=== PATIENT | male | born 1935 | race Caucasian/White ===

== ENCOUNTER 2017-04-14 19:22 | Inpatient (IN) | payer OTHER ==
--- NOTE | ~2017-04-14 | HP ---
Unit #: [id number] #: [id number] Patient: ALFA HELMS [id number] [address] [address] [id number] MR#: [id number] NAME: ALFA HELMS. ROOM: 479 Age: 81 Sex: M Admission Date: 04/15/2017 : 1935 Attending Physician: Bailey Randall M.D. Primary Care Physician: Danyelle Rivera M.D. HISTORY AND PHYSICAL CHIEF COMPLAINT Weakness. HISTORY OF PRESENT ILLNESS Mr. Helms is a very nice 81-year-old male, with a history of diabetes, coronary artery disease, and prior urinary retention, who presented to the ER for above. The patient generally walks with a walker. He resides by himself and gets around well though he does admit to having a few falls for which he did not sustain injury recently. However, yesterday, he abruptly became increasingly weak meaning he was unable to get up from a seated position which is abnormal. He denies any fever at home. He denies any nausea or vomiting, chest pain, shortness of breath, dysuria. He presented to this emergency department last night secondary to his weakness and was found to have a temperature of 100.8 rectally. Urinalysis was concerning for urinary tract infection. He was given a dose of Rocephin and referred for admission. This morning he states that he feels well, again, he does admit that he has some overflow incontinence intermittently at home and did have an episode while in the room with me during the examination. A review of records indicates that he had urinary tract infection in 2013 with associated urinary retention. PAST MEDICAL HISTORY 1. Coronary artery disease, status post heart cath x2 without intervention. This is medically managed. 2. Diabetes mellitus, type 2, insulin-requiring with associated chronic kidney disease and peripheral neuropathy. 3. Chronic kidney disease, stage III, has basic creatinine of 1.3. 4. Paroxysmal atrial fibrillation maintained on Sotalol. 5. Benign prostatic hypertrophy, status post TURP x2. 6. Lumbar spinal stenosis. 7. Chronic lower extremity edema. 8. Hypertension. 9. Prior history of melanoma. 10. Hypertension. 11. Hyperlipidemia. 12. Chronic decreased mobility. PAST SURGICAL HISTORY Includes, transurethral resection of the prostate x2. Unit #: [id number] #: [id number] Patient: ALFA HELMS ALLERGIES No known drug allergies. HOME MEDICATIONS Include: 1. Flomax 0.4 mg daily 2. Sotalol 80 mg b.i.d. 3. Foltx tablet one tablet daily 4. Fish oil 1000 mg daily 5. Cinnamon one tablet daily 6. Lasix 20 mg b.i.d. 7. Norvasc 5 mg daily 8. Gabapentin 300 mg b.i.d. 9. Atorvastatin 10 mg daily 10. Lisinopril 5 mg daily 11. Aspirin 81 mg daily 12. Daily multivitamin 13. Humalog 50/50 mix 18 units subcu t.i.d. with meals FAMILY HISTORY Significant for prostate problems in patient's father, patient's father passed from old age. SOCIAL HISTORY The patient lives by himself, and again ambulates with a walker, but lives next door to his daughter who checks on him daily. He quit smoking in 1983 but did smoke one pack per day for thirty years. No alcohol use. No illicit drug use. REVIEW OF SYSTEMS Denies any fever, any lightheadedness, any vision change, any sore throat, any shortness of breath, chest pain, palpitations, constipation, diarrhea, melena, hematochezia. Denies any urinary retention, states that he has nocturia once per night but occasionally does have incontinence which appears to be overflow upon history, has had some falls without any sustainable injury, no new rashes, no new tingling, numbness, or weakness of extremities, otherwise ten point review of systems was reviewed and is negative. PHYSICAL EXAMINATION VITAL SIGNS: Current temperature is 100.0, maximum temperature was 100.8, blood pressure 120/61, pulse rate 86, respiratory rate 16, oxygen saturation 95% on room air. GENERAL: The patient is awake, alert. He is oriented x3 and appears younger than stated age. HEENT: Pupils equally round, and reactive to light bilaterally, anicteric sclerae, no conjunctival pallor. Oropharynx with moist mucous membranes. No erythema or exudate. NECK: Supple. No lymphadenopathy. No thyromegaly. No jugular venous distention. HEART: Regular rate and rhythm currently without murmur, rub, or gallop. LUNGS: Clear to auscultation bilaterally without wheezes, rhonchi, or crackles. ABDOMEN: Soft, it is nontender, perhaps mildly distended and obese, no appreciable hepatosplenomegaly. GENITOURINARY: No abnormalities noted on external exam. EXTREMITIES: No cyanosis, clubbing, and 1+ nonpitting edema of lower extremities. Pedal pulses are 4. Unit #: [id number] #: [id number] Patient: ALFA HELMS SKIN: Warm, moist without rash. NEUROLOGIC: Mildly decreased sensation in the feet bilaterally, deep tendon reflexes are 2/4 in the upper and lower extremities, bilaterally. Strength appears 4/5 in lower extremities and upper extremities bilaterally. Gait was not assessed. Pupils are equally round and reactive. PSYCHIATRIC: Appropriate affect, no suicidal or homicidal ideation. MUSCULOSKELETAL: Some hypertrophy of the knees noted bilaterally but no joint erythema. DIAGNOSTIC STUDIES LABORATORY: Lab work done in the emergency department, last evening, reveals a white blood cell count of 17.6, hemoglobin 13.6, platelet count of 137,000. This morning, white blood cell count is up to 19.1, hemoglobin 12.7. platelet count of 128,000 with 78% neutrophils. This morning BMP reveals a sodium of 144, and potassium 3.6, chloride 109, bicarb 21, BUN 17, creatinine 1.3, glucose of 127. Urinalysis reveals 2+ leukocyte esterase, 2+ protein, 3+ blood, 10-25 RBCs, and 200-300 WBCs with 4+ bacteria, no squamous cells, lactic acid was initially normal at 0.9 upon presentation and digoxin level was negative. IMAGING: Chest x-ray, done in the emergency department, is normal. CARDIOVASCULAR: EKG done in the emergency department reveals normal sinus rhythm. There is Q-wave present in V1. No other acute ST or T-wave abnormalities. ASSESSMENT 1. Sepsis secondary to urinary tract infection. 2. Probable urinary retention with overflow incontinence perhaps source of urinary tract infection. 3. Weakness secondary to #1. 4. Chronic kidney disease, stage III at baseline. 5. Chronic thrombocytopenia per history reviewed. 6. Diabetes mellitus, type 2, insulin-requiring with associated chronic kidney disease and peripheral neuropathy. 7. Paroxysmal atrial fibrillation now maintained in normal sinus rhythm, and not on anticoagulation. 8. Hypertension. 9. Hyperlipidemia. 10. History of benign prostatic hypertrophy. 11. Chronic decreased mobility. PLAN 1. Will admit the patient to med/surg. 2. Rocephin was started in the emergency department, I think this is appropriate, will await urine culture. 3. I am going to check a postvoid residual and place [place] if postvoid residual greater than 200, if this is the case I will ask urology to reevaluate. 4. Have PT and OT evaluate in regards to weakness, I suspect the patient will require rehab. 5. Will continue to monitor renal function. 6. Will monitor platelet count tomorrow. 7. Will continue insulin in regards to patient's diabetes, obtain Accu-Cheks a.c. and h.s. with associated sliding scale. Unit #: [id number] #: [id number] Patient: ALFA HELMS 8. Continue home medications for chronic conditions. 9. Lovenox for DVT prophylaxis. Dictated by Ramos Lawrence/wild TD: 04/15/2017 10:06 JOB #: [id number] HISTORY AND PHYSICAL Page 1 of 1 X Bailey Randall MD HISTORY AND PHYSICAL
--- NOTE | ~2017-04-14 | CR72 ---
[facility] A Service of [facility] RADIOLOGY TEXT RESULTS PATIENT: ALFA JIMENEZ LOCATION: [place] [address] : [birth year] UNIT #: [id number] AGE: [address]: Bailey Randall MD SEX: M ORDER DR: [id number] [facility] [address] [place], [place] [address] [id number] MR#: [id number] Acc #: [id number] NAME: ALFA JIMENEZ : 1935 SEX: M STUDY DATE/TIME: 04/14/2017 21:01 UNIT: [facility] ROOM: STUDY DESCRIPTION: CR Chest Single View Portable Attending Physician: Elizabeth Chacko M.D. Ordering Physician: Elizabeth Chacko M.D. Primary Care Physician: Danyelle Rivera M.D. MEDICAL IMAGING REPORT This report is preliminary unless electronic signature is present EXAM Portable chest HISTORY An 81-year-old male with altered mental status, congestion today. History of myeloma. COMPARISON 12/25/2013 FINDINGS A single AP portable view of the chest shows both lungs to be clear. The heart is normal in size. The mediastinal contour is normal. No significant bone abnormalities are seen. IMPRESSION Normal portable chest. Dictated by... Sp Torre M.D. THIS IS AN ELECTRONICALLY VERIFIED REPORT Sp Torre M.D. at 04/17/2017 6:07 AM Khurram TD: 04/15/2017 00:47 JOB #: [id number] MEDICAL IMAGING REPORT Page 1 of 1 COPY
--- NOTE | ~2017-04-14 | EKG ---
PATIENT: ALFA JIMENEZ UNIT #: [id number] Ventricular Rate: 86 BPM Atrial Rate: 86 BPM P-R Interval: 166 ms QRS Duration: 84 ms Q-T Interval: 368 ms QTC Calculation(Bezet): 440 ms P [place]: 48 degrees Calculated R [place]: 15 degrees Calculated T [place]: 45 degrees Diagnosis Line: Sinus rhythm with occasional Premature ventricular Diagnosis Line: complexes and Premature atrial complexes Diagnosis Line: Otherwise normal ECG Diagnosis Line: When compared with ECG of 28-DEC-2013 16:34, Diagnosis Line: Premature ventricular complexes are now Present Diagnosis Line: Premature atrial complexes are now Present Diagnosis Line: Confirmed by ANTOLIN SULLIVAN MD ([id number]) on Diagnosis Line: 04/15/2017 4:30:04 PM INTERPRETING MD: NATE CHAIDEZ
--- NOTE | ~2017-04-14 | DS ---
Unit #: [id number] #: [id number] Patient: ALFA JIMENEZ [id number] [address] [place], [place] [address] [id number] Blas MR#: [id number] NAME: ALFA JIMENEZ. ROOM: 479 Age: 81 Sex: M Admission Date: 04/15/2017 : 1935 Discharge Date: 04/18/2017 Attending Physician: Bailey Randall M.D. Primary Care Physician: Danyelle Rivera M.D. DISCHARGE SUMMARY PRINCIPAL DIAGNOSES 1. Sepsis secondary to Escherichia coli urinary tract infection. 2. Physical deconditioning, acute on chronic, secondary to #1. 3. Chronic kidney disease stage 3, discharge creatinine of 1.4. 4. Chronic thrombocytopenia. 5. Diabetes mellitus type 2 with associated peripheral neuropathy and chronic kidney disease, insulin requiring and controlled. 6. Paroxysmal atrial fibrillation, currently maintained in normal sinus rhythm. 7. Hypertension. 8. Benign prostatic hypertrophy, status post transurethral resection of the prostate x2. CONSULTANTS None. PROCEDURE Chest x-ray on April 14, 2017, which was normal. CLINICAL HISTORY AND HOSPITAL COURSE Mr. Jimenez is a very nice 81-year-old male who presented to the emergency department with the acute onset of weakness. In the emergency department, he was found to have a urinary tract infection and was subsequently admitted. In regards to patient's UTI, he was started on empiric Rocephin. Urine culture has grown E. coli, and he has been changed to oral antibiotics for which he will complete a total of seven days of antibiotic therapy. I will note that I suspect the patient has some recurrent urinary retention leading to UTI, though I could not detect this on bladder scan during hospitalization. He can follow up with Urology if he so desires as an outpatient. However, I believe this is currently being monitored by Dr. Rivera. Patient's other chronic conditions all remained stable without adjustments in his medications. He will be discharged to rehab today given he was significantly weak with PT/OT. DISCHARGE CONDITION Stable. DISCHARGE STATUS Discharge to rehab. Unit #: [id number] #: [id number] Patient: ALFA JIMENEZ DISCHARGE MEDICATIONS 1. Flomax 0.4 mg daily. 2. Neurontin 300 mg b.i.d. 3. Norvasc 5 mg daily. 4. Sotalol 80 mg b.i.d. 5. Keflex 500 mg p.o. b.i.d., to stop after doses on April 21, 2017. 6. Lasix 20 mg b.i.d. 7. Lipitor 10 mg at bedtime. 8. Lisinopril 5 mg daily. 9. Humalog 50/50 mix 18 units subcutaneous t.i.d. with meals. 10. Fish oil 1000 mg daily. 11. Daily multivitamin. 12. Aspirin 81 mg daily. 13. Cinnamon tablet 1 daily. 14. Foltx tablet 1 daily. DISCHARGE INSTRUCTIONS 1. Patient was instructed to follow a constant carbohydrate diet. 2. I think patient only requires Accu-Cheks intermittently at rehab given sugars here have been stable in the 120s-150s range. 3. He can increase his activity as tolerated under the care of physical and occupational therapy. FOLLOWUP Patient will follow up with Dr. Rivera upon discharge from rehab. Dictated by... Bailey Randall M.D. Frances TD: 04/18/2017 14:30 JOB #: [id number] DISCHARGE SUMMARY Page 1 of 1 X Bailey Randall MD X DISCHARGE SUMMARY
[~2017-04-14 19:22] MED LIST: AMARYL PO; AMLODIPINE BESY10 MG PO; AMLODIPINE BESYL5 MG PO; ASPIRIN81 MG PO; B-12250 MCG PO; BAYER CHEWABLE81 MG; CINNAMON PO; COZAAR100 MG; FISH OIL300 MG PO; FLOMAX0.4 M1 PO; GABAPENTIN300 M2; GABAPENTIN300 MG PO; HYDROCHLOROTHIA25 MG PO; JENTADUETO 2.51 EACH PO; LANOXIN PO; LANOXIN125 MCG PO; LASIX PO; LISINOPRIL10 MG PO; METFORMIN HCL1000 M1; NIACIN; NIACIN PO; NIACIN50 MG PO; SOTALOL AF80 M1; SOTALOL AF80 M1 PO; SOTALOL AF80 MG; SOTALOL AF80 MG PO; TAMSULOSIN HCL0.4 MG
[2017-04-14 20:32] LABS: BASOPHIL# 0.1 X10e3 (0-0.3); BASOPHIL% 0.3 % (0-2.5); EOSINOPHIL% 0.1 % (0.0-7.0); HEMATOCRIT 41.2 % (38.0-50.0); HEMOGLOBIN 13.6 gm/dL (13.0-16.0); LYMPHOCYTE# 2.1 X10e3 (1.0-3.5); LYMPHOCYTE% 12.2 % (17.0-45.0); MEAN CORPUSCULAR HEMOGLOBIN 31.6 PG (28-34); MEAN PLATELET VOLUME 9.8 FL (6.5-11.5); MONOCYTE# 2.2 X10e3 (0-1.0); MONOCYTE% 12.5 % (3.0-12.0); NEUTROPHIL# 13.2 X10e3 (1.5-7.1); NEUTROPHIL% 74.9 % (40-75); PLATELET COUNT 137 X10e3 (140-420); RED BLOOD COUNT 4.29 X10e (3.90-5.60); RED CELL DISTRIBUTION WIDTH 14.3 % (11.0-15.5); WHITE BLOOD COUNT 17.6 X10e3 (4.0-10.5)
[2017-04-14 20:35] LABS: DIFF IND YES
[2017-04-14 20:45] LABS: ALBUMIN SERUM 3.5 g/dL (3.5-5.0); BILIRUBIN, DIRECT 0.1 mg/dL (0.0-0.2); BILIRUBIN,INDIRECT 0.7 mg/dL (0.0-0.9); BILIRUBIN,TOTAL 0.8 mg/dL (0.2-2.0); BUN/CREATININE RATIO 15.71; CALCIUM SERUM 8.7 mg/dL (8.4-10.2); CREATININE SERUM 1.4 mg/dL (0.6-1.4); GLOM FILT RATE Estimated 46.2 mL/min (>60); POTASSIUM 3.5 mmol/L (3.5-5.1); PROTEIN TOTAL SERUM 7.5 g/dL (6.0-8.3)
[2017-04-14 21:02] LABS: PLATELET ESTIMATE NORMAL (NORMAL); RBC NORMAL YES
[2017-04-14 21:51] LABS: URINE SOURCE CLEAN CATCH
[2017-04-14 21:54] LABS: URINE APPEARANCE CLOUDY; URINE BILIRUBIN NEG (NEG); URINE BLOOD 3+ (NEG); URINE COLOR YELLOW; URINE GLUCOSE NEG (NEG); URINE KETONE 1+ (NEG); URINE LEUKOCYTE ESTERASE 2+ (NEG); URINE NITRATE NEG (NEG); URINE PH 6.5 (5-8); URINE PROTEIN 2+ (NEG); URINE SPECIFIC GRAVITY 1.021 (1.003-1.035)
[2017-04-14 21:57] LABS: CULTURE INDICATED? YES; URINE BACTERIA AUWI 4+ (NEGATIVE); URINE SQUAMOUS EPITHELIAL CELL NONE SEEN /[HPF]; UWBCS1 AUWI 200-300 (0-5)
[2017-04-15] MEDS ORDERED: LASIX20 MG PO (05:17)
[2017-04-15] MEDS ORDERED: ATORVASTATIN CA10 MG PO (05:18)
[2017-04-15] MEDS ORDERED: AMLODIPINE BESYL5 MG PO (05:18)
[2017-04-15] MEDS ORDERED: GABAPENTIN300 M2 PO (05:18)
[2017-04-15] MEDS ORDERED: FLOMAX0.4 M1 PO (05:19)
[2017-04-15] MEDS ORDERED: SOTALOL AF80 M1 PO (05:19)
[2017-04-15] MEDS ORDERED: LISINOPRIL5 MG PO (05:19)
[2017-04-15] MEDS ORDERED: FISH OIL DR 1,1 EACH PO (05:20)
[2017-04-15] MEDS ORDERED: CINNAMON ALPHA1 EACH PO (05:20)
[2017-04-15] MEDS ORDERED: FOLTX TABLET1 EACH PO (05:20)
[2017-04-15] MEDS ORDERED: MULTIVITAMINS1 EAC3 (05:21)
[2017-04-15] MEDS ORDERED: BAYER CHEWABLE81 MG PO (05:21)
[2017-04-15] MEDS ORDERED: HUMALOG MI100 UNIT/3 SUBQ (05:22)
[2017-04-15 07:31] LABS: BASOPHIL# 0.1 X10e3 (0-0.3); BASOPHIL% 0.3 % (0-2.5); HEMATOCRIT 38.9 % (38.0-50.0); HEMOGLOBIN 12.7 gm/dL (13.0-16.0); LYMPHOCYTE# 1.9 X10e3 (1.0-3.5); LYMPHOCYTE% 10.2 % (17.0-45.0); MEAN CELL VOLUME 96.9 FL (83-96); MEAN CORPUSCULAR HEMOGLOBIN 31.7 PG (28-34); MEAN CORPUSCULAR HGB CONC 32.7 g/dL (30-36); MEAN PLATELET VOLUME 10.3 FL (6.5-11.5); MONOCYTE# 2.2 X10e3 (0-1.0); MONOCYTE% 11.7 % (3.0-12.0); NEUTROPHIL# 14.8 X10e3 (1.5-7.1); NEUTROPHIL% 77.8 % (40-75); PLATELET COUNT 128 X10e3 (140-420); RED BLOOD COUNT 4.02 X10e (3.90-5.60); RED CELL DISTRIBUTION WIDTH 14.2 % (11.0-15.5); WHITE BLOOD COUNT 19.1 X10e3 (4.0-10.5)
[2017-04-15 07:32] LABS: DIFF IND NO
[2017-04-15 07:52] LABS: BUN/CREATININE RATIO 13.07; CALCIUM SERUM 8.4 mg/dL (8.4-10.2); CREATININE SERUM 1.3 mg/dL (0.6-1.4); GLOM FILT RATE Estimated 50.5 mL/min (>60); POTASSIUM 3.6 mmol/L (3.5-5.1)
[2017-04-15 10:42] LABS: CREATININE SERUM 1.5 mg/dL (0.6-1.4); GLOM FILT RATE Estimated 42.5 mL/min (>60)
[2017-04-16 03:58] LABS: BASOPHIL# 0.1 X10e3 (0-0.3); BASOPHIL% 0.6 % (0-2.5); EOSINOPHIL# 0.1 X10e3 (0-0.7); EOSINOPHIL% 1.1 % (0.0-7.0); HEMATOCRIT 40.3 % (38.0-50.0); LYMPHOCYTE# 1.7 X10e3 (1.0-3.5); LYMPHOCYTE% 12.6 % (17.0-45.0); MEAN CELL VOLUME 97.3 FL (83-96); MEAN CORPUSCULAR HEMOGLOBIN 31.5 PG (28-34); MEAN CORPUSCULAR HGB CONC 32.4 g/dL (30-36); MEAN PLATELET VOLUME 10.1 FL (6.5-11.5); MONOCYTE# 1.7 X10e3 (0-1.0); MONOCYTE% 12.6 % (3.0-12.0); NEUTROPHIL# 9.9 X10e3 (1.5-7.1); NEUTROPHIL% 73.1 % (40-75); PLATELET COUNT 130 X10e3 (140-420); RED BLOOD COUNT 4.14 X10e (3.90-5.60); RED CELL DISTRIBUTION WIDTH 14.6 % (11.0-15.5); WHITE BLOOD COUNT 13.5 X10e3 (4.0-10.5)
[2017-04-16 04:00] LABS: DIFF IND NO
[2017-04-16 04:30] LABS: BUN/CREATININE RATIO 13.57; CALCIUM SERUM 8.4 mg/dL (8.4-10.2); CREATININE SERUM 1.4 mg/dL (0.6-1.4); GLOM FILT RATE Estimated 46.2 mL/min (>60); POTASSIUM 3.8 mmol/L (3.5-5.1)
[2017-04-17 03:44] LABS: BASOPHIL% 0.4 % (0-2.5); EOSINOPHIL# 0.1 X10e3 (0-0.7); EOSINOPHIL% 1.8 % (0.0-7.0); HEMATOCRIT 38.8 % (38.0-50.0); HEMOGLOBIN 12.9 gm/dL (13.0-16.0); LYMPHOCYTE# 1.5 X10e3 (1.0-3.5); LYMPHOCYTE% 20.8 % (17.0-45.0); MEAN CELL VOLUME 95.6 FL (83-96); MEAN CORPUSCULAR HEMOGLOBIN 31.8 PG (28-34); MEAN CORPUSCULAR HGB CONC 33.2 g/dL (30-36); MEAN PLATELET VOLUME 10.1 FL (6.5-11.5); MONOCYTE# 1.2 X10e3 (0-1.0); MONOCYTE% 15.8 % (3.0-12.0); NEUTROPHIL# 4.5 X10e3 (1.5-7.1); NEUTROPHIL% 61.2 % (40-75); PLATELET COUNT 154 X10e3 (140-420); RED BLOOD COUNT 4.06 X10e (3.90-5.60); WHITE BLOOD COUNT 7.4 X10e3 (4.0-10.5)
[2017-04-17 03:46] LABS: DIFF IND NO
[2017-04-17 04:03] LABS: BUN/CREATININE RATIO 14.28; CALCIUM SERUM 8.4 mg/dL (8.4-10.2); CREATININE SERUM 1.4 mg/dL (0.6-1.4); GLOM FILT RATE Estimated 46.2 mL/min (>60); POTASSIUM 3.5 mmol/L (3.5-5.1)
== END 2017-04-18 16:35 | DRG 872 ==
LOC: CED 19:22 → CEDOF 04-15 01:50 → C4C 04-15 09:35
PROVIDERS: Internal Medicine
DX: A41.51 Sepsis due to Escherichia coli [E. coli] (principal); E11.22 Type 2 diabetes mellitus with diabetic chronic kidney disease; D69.6 Thrombocytopenia, unspecified; E11.42 Type 2 diabetes mellitus with diabetic polyneuropathy; N18.3 Chronic kidney disease, stage 3 (moderate); I48.0 Paroxysmal atrial fibrillation; N39.0 Urinary tract infection, site not specified; I12.9 Hypertensive chronic kidney disease with stage 1 through stage 4 chronic kidney disease, or unspecified chronic kidney disease; Z79.4 Long term (current) use of insulin; E78.5 Hyperlipidemia, unspecified; M48.06 Spinal stenosis, lumbar region; Z85.820 Personal history of malignant melanoma of skin; Z79.82 Long term (current) use of aspirin; N40.1 Benign prostatic hyperplasia with lower urinary tract symptoms; R33.8 Other retention of urine
CPT/HCPCS: 36415; 71010; 80048; 80076; 80162; 81003; 82550; 82565; 82607; 82947; 83036; 83605; 84443; 85025; 87040; 87086; 87088; 87186; 93005; 96361; 96365; 96367; 97110; 97116; 97162; 97166; 97530; 99285; G8978-GP; G8979-GP; G8987-GO; G8988-GO; G8989-GO; J0456; J0696; J1650; J1815